=== PATIENT | female | born 2000 | race Caucasian/White ===

== ENCOUNTER 2022-08-24 07:21 | Inpatient (IN) | payer MEDICAID ==
[~2022-08-24] VITALS: Ht 157.5 cm; Wt 85.7 kg
[~2022-08-24 07:21] MED LIST: LIDOCAINE HCL 2%/EPINEPHRINE 1:100,000 20 ML VIAL INFIL ONE
[2022-08-24] MEDS ORDERED: FERR325T6 PO (09:32)
[2022-08-24] MEDS ORDERED: PNV1TABL76 MT (09:33)
[2022-08-24] MEDS: LACTATED RINGERS 1,000 ML IV SCH ×5 (11:13→23:27)
[2022-08-24] MEDS ORDERED: CARBOPROST TROMETHAMINE 250 MCG/ML AMPUL IM PRN (11:15)
[2022-08-24] MEDS ORDERED: LIDOCAINE HCL 1% 20ML VIAL (Pyxis) INJ INFIL SCH (11:15)
[2022-08-24] MEDS ORDERED: MISOPROSTOL 100MCG TABLET VG SCH (11:15)
[2022-08-24] MEDS ORDERED: BUTORPHANOL TARTRATE 2 MG/ML VIAL IV PRN (11:15)
[2022-08-24] MEDS ORDERED: METHYLERGONOVINE MALEATE 0.2 MG/ML IM PRN (11:15)
[2022-08-24] MEDS: OXYTOCIN 30 UNITS/500ML NS PMX 500 ML IV SCH ×2 (11:35→23:39)
[2022-08-24 12:03] LABS: BASOPHILS % 0.2 % (0.0-2.0); EOSINOPHILS % 0.9 % (0.0-5.0); HEMATOCRIT. 40.4 % (36.0-48.0); HEMOGLOBIN. 13.6 g/dL (12.0-16.0); LYMPHOCYTES % 17.9 % (20.0-50.0); MEAN CORPUSCULAR HEMOGLOBIN 29.2 pg (28.0-32.0); MEAN CORPUSCULAR VOLUME 86.4 fL (81.0-99.0); MEAN PLATELET VOLUME 10.3 fl (7.4-10.4); MONOCYTES % 8.8 % (2.0-8.0); NEUTROPHILS % 72.2 % (40.0-76.0); PLATELET 180 x1000/uL (130-400); RED BLOOD CELL COUNT 4.67 mill/uL (4.2-5.4); RED CELL DISTRIBUTION WIDTH 14.2 % (11.6-14.6)
[2022-08-24 12:44] LABS: HEPATITIS B SURFACE ANTIGEN NEGATIVE
[2022-08-24] MEDS ORDERED: ROPIVACAINE HCL/PF EPIDURAL 200 ML EPI SCH (14:15)
[2022-08-24 14:26] LABS: *AMPHETAMINES SCREEN URINE NEGATIVE (NEGATIVE); *BARBITURATES SCREEN URINE NEGATIVE (NEGATIVE); *BENZODIAZEPINES SCREEN URINE NEGATIVE (NEGATIVE); *COCAINE SCREEN URINE NEGATIVE (NEGATIVE); CANNABINOID URINE SCREEN NEGATIVE (NEGATIVE); METHADONE URINE SCREEN NEGATIVE (NEGATIVE); OPIATES URINE SCREEN NEGATIVE (NEGATIVE); PHENCYCLIDINE URINE SCREEN NEGATIVE (NEGATIVE)
[2022-08-24 14:30] LABS: PARTIAL THROMBOPLASTIN TIME 29.9 sec (23.4-31.0); PROTHROMBIN TIME 10.3 sec (9.6-11.0)
[2022-08-25] VITALS (7 sets, daily range): BP systolic 97–119; BP diastolic 51–68
[2022-08-25] MEDS ORDERED: IBUPROFEN 800MG TABLET PO NR (00:15)
[2022-08-25] MEDS: LACTATED RINGERS 1,000 ML IV SCH (03:07)
[2022-08-25] MEDS ORDERED: RHO(D) IMMUNE GLOBULIN 300 MCG/SYR IM PRN (07:15)
[2022-08-25] MEDS ORDERED: IBUPROFEN 400MG TABLET PO PRN (07:15)
[2022-08-25] MEDS ORDERED: OXYTOCIN 30 UNITS/500ML NS PMX 500 ML IV SCH (07:15)
[2022-08-25] MEDS ORDERED: HEMORRHOIDAL SUPP PR PRN (07:15)
[2022-08-25] MEDS ORDERED: BENZOCAINE/LANOLIN/ALOE VERA SPRAY TOP PRN (07:15)
[2022-08-25] MEDS ORDERED: OXYCODONE HCL/ACETAMINOPHEN 5/325MG TABLET PO PRN (07:15)
[2022-08-25] MEDS ORDERED: LANOLIN OINT 7GM TUBE TOP PRN (07:15)
[2022-08-25] MEDS ORDERED: GLYCERIN/WITCH HAZEL LEAF MEDICATED PAD TOP PRN (07:15)
[2022-08-25] MEDS ORDERED: DIPHENHYDRAMINE 25MG CAPSULE PO PRN (07:15)
[2022-08-25] MEDS ORDERED: METHYLERGONOVINE MALEATE 0.2 MG/ML IM PRN (07:15)
[2022-08-25] MEDS ORDERED: NALOXONE HCL 0.4MG/ML VIAL IV PRN (07:30)
[2022-08-25] MEDS: PRENATAL VIT/FE FUMARATE/FA TABLET PO SCH (09:00)
[2022-08-25 09:36] LABS: BASOPHILS % 0.1 % (0.0-2.0); EOSINOPHILS % 0.2 % (0.0-5.0); HEMATOCRIT. 34.2 % (36.0-48.0); HEMOGLOBIN. 11.6 g/dL (12.0-16.0); LYMPHOCYTES % 9.9 % (20.0-50.0); MEAN CORPUSCULAR HEMOGLOBIN 29.5 pg (28.0-32.0); MEAN CORPUSCULAR VOLUME 86.9 fL (81.0-99.0); MEAN PLATELET VOLUME 9.8 fl (7.4-10.4); MONOCYTES % 5.4 % (2.0-8.0); NEUTROPHILS % 84.4 % (40.0-76.0); PLATELET 163 x1000/uL (130-400); RED BLOOD CELL COUNT 3.93 mill/uL (4.2-5.4); RED CELL DISTRIBUTION WIDTH 14.4 % (11.6-14.6)
[2022-08-25] MEDS: IBUPROFEN 800MG TABLET PO PRN (20:56)
[2022-08-25] MEDS ORDERED: DOCUSATE SODIUM 100MG CAPSULE PO SCH (21:00)
[2022-08-26] MEDS: IBUPROFEN 800MG TABLET PO PRN (03:29)
[2022-08-26 03:30] VITALS: BP 106/64
[2022-08-26 07:54] LABS: BASOPHILS % 0.1 % (0.0-2.0); EOSINOPHILS % 0.9 % (0.0-5.0); HEMATOCRIT. 32.2 % (36.0-48.0); HEMOGLOBIN. 10.7 g/dL (12.0-16.0); LYMPHOCYTES % 14.4 % (20.0-50.0); MEAN CORPUSCULAR HEMOGLOBIN 29.1 pg (28.0-32.0); MEAN CORPUSCULAR VOLUME 87.7 fL (81.0-99.0); MEAN PLATELET VOLUME 9.5 fl (7.4-10.4); MONOCYTES % 7.1 % (2.0-8.0); NEUTROPHILS % 77.5 % (40.0-76.0); PLATELET 158 x1000/uL (130-400); RED BLOOD CELL COUNT 3.68 mill/uL (4.2-5.4); RED CELL DISTRIBUTION WIDTH 14.2 % (11.6-14.6)
[2022-08-26 08:00] VITALS: BP 102/64
[2022-08-26] MEDS: PRENATAL VIT/FE FUMARATE/FA TABLET PO SCH (09:16)
[2022-08-26] MEDS: FERROUS SULFATE 325MG TABLET PO SCH ×2 (09:16→12:54)
[2022-08-26 16:00] VITALS: BP 105/65
[2022-08-26 19:15] VITALS: BP 99/63
[2022-08-26 19:44] LABS: BASOPHILS % 0.1 % (0.0-2.0); EOSINOPHILS % 1.1 % (0.0-5.0); HEMOGLOBIN. 11.9 g/dL (12.0-16.0); LYMPHOCYTES % 17.3 % (20.0-50.0); MEAN CORPUSCULAR HEMOGLOBIN 28.9 pg (28.0-32.0); MEAN CORPUSCULAR VOLUME 87.6 fL (81.0-99.0); MEAN PLATELET VOLUME 9.4 fl (7.4-10.4); MONOCYTES % 5.7 % (2.0-8.0); NEUTROPHILS % 75.8 % (40.0-76.0); PLATELET 189 x1000/uL (130-400); RED BLOOD CELL COUNT 4.11 mill/uL (4.2-5.4); RED CELL DISTRIBUTION WIDTH 14.7 % (11.6-14.6)
[2022-08-26 21:57] LABS: CLARITY URINE CLOUDY (CLEAR); COLOR URINE RED (YELLOW); KETONES URINE NEGATIVE (NEGATIVE); LEUKOCYTE ESTERASE URINE 3+ (NEGATIVE); NITRITE URINE NEGATIVE (NEGATIVE); OCCULT BLOOD URINE 3+ (NEGATIVE); PROTEIN URINE 1+ (NEGATIVE); SPECIFIC GRAVITY URINE 1.008 (1.005-1.030); UROBILINOGEN URINE 0.2 E.U./dL (0.2-1.0)
[2022-08-26] MEDS ORDERED: CEFAZOLIN 1000MG PREMIX 50 ML IV NR (22:00)
[2022-08-26] MEDS ORDERED: LACTATED RINGERS 1,000 ML IV SCH (22:15)
[2022-08-27 04:05] VITALS: BP 120/73
[2022-08-27] MEDS ORDERED: CEFAZOLIN 1000MG PREMIX 50 ML IV SCH (06:00)
[2022-08-27 06:35] LABS: BASOPHILS % 0.3 % (0.0-2.0); HEMOGLOBIN. 11.1 g/dL (12.0-16.0); LYMPHOCYTES % 18.3 % (20.0-50.0); MEAN CORPUSCULAR HEMOGLOBIN 29.1 pg (28.0-32.0); MEAN CORPUSCULAR VOLUME 86.1 fL (81.0-99.0); MEAN PLATELET VOLUME 8.9 fl (7.4-10.4); NEUTROPHILS % 74.4 % (40.0-76.0); PLATELET 189 x1000/uL (130-400); RED BLOOD CELL COUNT 3.84 mill/uL (4.2-5.4); RED CELL DISTRIBUTION WIDTH 14.4 % (11.6-14.6)
[2022-08-27 06:41] LABS: CHLORIDE 108 mEq/L (98-107)
[2022-08-27] MEDS ORDERED: CEPH500T MT (07:18)
[2022-08-27] MEDS ORDERED: IBUP-2030 MT (07:19)
[2022-08-27 09:00] VITALS: BP 110/70
== END 2022-08-27 10:30 | disposition home or self-care (01) | DRG 560 ==
LOC: 8 EST LDRP 07:21 → OBSVTOIN 07:21 → 8EST 08-25 01:00
PROVIDERS: ADMIT Obstetrics & Gynecology; ATTEND Obstetrics & Gynecology
PROC: 10E0XZZ Delivery of Products of Conception, External Approach (ICD-10-PCS; principal; 2022-08-25)
PROC: 3E0234Z Introduction of Serum, Toxoid and Vaccine into Muscle, Percutaneous Approach (ICD-10-PCS; 2022-08-25)
PROC: 3E0R3BZ Introduction of Anesthetic Agent into Spinal Canal, Percutaneous Approach (ICD-10-PCS; 2022-08-25)
PROC: 00HU33Z Insertion of Infusion Device into Spinal Canal, Percutaneous Approach (ICD-10-PCS; 2022-08-25)
DX: O48.0 Post-term pregnancy (principal); Z37.0 Single live birth; D62 Acute posthemorrhagic anemia; Z20.822 Contact with and (suspected) exposure to COVID-19; O99.03 Anemia complicating the puerperium; Z3A.40 40 weeks gestation of pregnancy; O86.20 Urinary tract infection following delivery, unspecified; N39.0 Urinary tract infection, site not specified; O26.893 Other specified pregnancy related conditions, third trimester; Z67.41 Type O blood, Rh negative
CPT/HCPCS: 36415; 76805; 76818; 80048; 80305; 81003; 82565; 85025; 86592; 86703; 86762; 86850; 86886; 86900; 87340; 87426; 90384; 99281; J0690; J3490; J7120; J2590; J2791